=== PATIENT | female | born 1990 | race Caucasian/White ===

== ENCOUNTER 2023-10-19 20:20 | Emergency (ER) | payer BC, SELFPAY ==
[2023-10-19 20:26] VITALS: BP 152/96
[2023-10-19 22:28] VITALS: BP 131/84
--- NOTE | 2023-10-19 22:49 | ED.GENMED ---
History of Present Illness
General
Chief Complaint: Jaw Pain
Source: patient
Exam Limitations: none
Time Seen by Provider: 10/19/23 21:35
Nursing documentation reviewed up to this point in time: agreed with
Travel History
Have you had any contact with someone who has COVID-19?: No
Do you have any symptoms of coronavirus? Fever > 100 degrees, chills, cough, shortness of breath, sore throat, loss of taste or smell, muscle aches, or headache?: No
History of Present Illness
History of Present Illness:
Patient states 2 days ago she yawned and her jaw dislocated. States she took a nap and jaw reduced on own. Tonight she reports that her jaw feels like it is going to dislocate. Reports pain to left side of jaw. Brought self to ED for eval.
Past History
Past History
ED Past Medical History: None
ED Past Surgical History: None
Review of Systems
Review of Systems
Allergies reviewed?: Yes
All Other Systems: ROS reviewed and negative except as documented in HPI and ROS
Constitutional: Reports no symptoms
EENT: Reports other (reports jaw dislocation 2 days ago. Pain and feeling unstable tonight.)
Musculoskeletal: Reports joint pain (pain to left jaw)
Skin: Reports no symptoms
Neurological: Reports no symptoms
Psychiatric: Reports no symptoms
Phy Exam
General Physical Exam
General Presentation: well appearing and mild distress
General age: appears stated age
General Skin: warm and dry
General Habitus: normal
General Mental: alert
General Hydration: appears well hydrated
ENT Exam
ENT Exam: other (Left TMJ pain. NO dislocation. ROM to jaw is intact.)
Musculoskeletal Exam
Musculoskeletal Exam: full ROM, neuro vasc intact and other (No dislocation noted. Pain at TMJ. No swelling.)
Skin Exam
Skin Exam: normal color, warm/dry and no rash
Psychiatric Exam
Psychiatric Exam: normal mood/affect
Course
Orders/Labs/Results
Orders:
Orders
10/19/23 21:31
CR Jaw/mandible < 4 Views Urgent
Comment:
Reason For Exam: injury
10/19/23 22:42
Cyclobenzaprine HCl [Flexeril] 10 mg PO NOW STA
Ibuprofen [Motrin] 600 mg PO NOW STA
Vital Signs
Initial and Last Documented VS:
Initial Vital Signs
Temp Pulse Resp BP Pulse Ox
98.3 F 85 18 152/96 98
10/19/23 20:26 10/19/23 20:26 10/19/23 20:26 10/19/23 20:26 10/19/23 20:26
Last Documented Vital Signs
Temp Pulse Resp BP Pulse Ox
98.3 F 82 18 131/84 98
10/19/23 20:26 10/19/23 22:28 10/19/23 22:28 10/19/23 22:28 10/19/23 22:28
*Radiology
Radiology exam reviewed: radiology read reviewed
*Pulse Oximetry
Patient hypoxic: no
*Critical Care Note
Total Time (30-74mins, 75-104mins- exclusive of procedures): Not Applicable
ED Attending Note
-
Portions of this chart may have been created with voice recognition software.� Occasional wrong word or��sound alike� substitutions may have occurred due to the inherent limitations of voice recognition software.
Discharge Plan
Departure
Patient Disposition: Home (Routine Discharge)
Date of Disposition: 10/19/23
Time of Disposition: 22:42
Patient with high blood pressure during this ER visit?: No
Condition: Good
Covid-19: Not Applicable
Discharge Problem:
Mandibular pain
Instructions: Dislocated Jaw (DC), Ibuprofen
Prescriptions:
New
cyclobenzaprine 10 mg tablet
10 mg PO TID PRN (Reason: muscle spasm) Qty: 12 0RF
Referrals:
Xiao Prince PA-C [Family Provider] -
Oswald Junior MD [Active] - Call in 1-3 days for appt
Interventions
Interventions:
*Risk Screen - Suicide Last Done: 10/19/23 20:28
*General Assessment Last Done: 10/19/23 20:27
*Neglect/Abuse Screening Last Done: 10/19/23 20:28
*ED COVID-19 Vaccine History Last Done: 10/19/23 20:27
*Nursing Disposition Last Done: 10/19/23 23:01
ED-EENT Assessment Last Done: 10/19/23 20:42
ED- Cardiac Assessment Last Done: 10/19/23 20:41
Discharge Date and Time
Discharge Date/Time: 10/19/23 23:02
[2023-10-19] MEDS: FLEXERIL 10 MG PO (22:58)
[2023-10-19] MEDS: MOTRIN 600 MG PO (22:58)
== END 2023-10-19 23:02 | disposition home or self-care (01) ==
LOC: EMR 20:20
PROVIDERS: EMERGENCY PHYSICIAN Emergency Medicine; FAMILY PHYSICIAN Physician Assistant
DX: R68.84 Jaw pain (principal); E03.9 Hypothyroidism, unspecified
CPT/HCPCS: 99283; 70100; 99285